=== PATIENT | female | born 1960 | race Caucasian/White ===

== ENCOUNTER 2023-10-24 14:53 | Emergency (ER) | payer OTHER, SELFPAY ==
--- NOTE | ~2023-10-24 | XR_ITS ---
EXAM: XR foot RT min 3V DATE: 10/24/2023 15:18 HISTORY: foot injury; pain . COMPARISON: None available. FINDINGS: Decreased mineralization. Old fifth metatarsal shaft fracture, healed in mild deformity. N o new acute fracture or dislocation. Splayed second and third toes. No lytic or blastic lesion. Moder ate scattered degenerative change. Small os navicularis. Mild Achilles and plantar enthesopathy. No e rosion or periosteal change. Soft tissues within normal limits. IMPRESSION: No acute osseous finding in the right foot. Splayed toes which can occur with Gonzalez's neuroma, correlate clinically. Reviewed, dictated and finalized at location K.
[2023-10-24 15:02] VITALS: BP 140/87; PULSE 85; RESP 20; TEMP 36.8; O2SAT 100
[2023-10-24] MEDS: KETOROLAC (*BKC) 60 MG/2 ML VIAL IM (15:29)
--- NOTE | 2023-10-24 20:12 | ED.LOWEXIN ---
HPI - Extremity Injury (Lower) General Chief Complaint: Extremity Injury, Lower Stated Complaint: right foot injury Source: patient, RN notes reviewed and old records reviewed Mode of arrival: ambulatory Limitations: no limitations History of Present Illness HPI Narrative: 62-year-old female to [facility] for complaint of right foot injury. patient reports history of prior fracture to 5th metatarsal. Patient states that today she was helping a 300 pound family member with a wheelchair. patient states the wheelchair was going the wrong direction and she used her foot to try to stop it. patient endorsing pain to right lateral dorsal foot. Moderate swelling noted upon arrival. Patient denies numbness, tingling. Related Data Home Medications Medication Instructions Recorded Confirmed omeprazole 40 mg capsule,delayed 40 mg PO DAILY 10/24/23 10/24/23 release Allergies Allergy/AdvReac Type Severity Reaction Status Date / Time No Known Allergies Allergy Verified 10/24/23 15:10 Review of Systems Review of Systems: All systems reviewed & are unremarkable except as noted in HPI and below Constitutional: Constitutional: Reports no additional constitutional complaints Eyes: Eyes: Reports no additional eye complaints ENT: Reports system reviewed and no additional complaints, except as documented Cardiovascular: Cardiovascular: Reports no additional cardiovascular complaints, Denies chest pain and Denies dyspnea Respiratory: Respiratory: Reports no additional respiratory complaints, Denies cough and Denies dyspnea Musculoskeletal: Musculoskeletal: Reports other ( Right foot pain) Neurologic: Reports system reviewed and no additional complaints, except as documented Psychiatric: Psychiatric: Reports no additional psychiatric complaints PMFSH Comments At the time of my signature, I reviewed and agree with the nursing past medical, surgical, social, and family history. There is no relevant family history pertinent to the patient complaint. Exam Const: General: cooperative, no acute distress, alert, uncomfortable and well nourished Nutritional Appearance: well nourished Orientation/consciousness: patient oriented x3 Limitations: no limitations HENMT: Head: normal to inspection Ears: external ears normal Face/Nose/Sinus: Normal external nose present, Normal nares present, normal facial exam, No erythema and No edema Face and sinus: normal facial exam, no erythema and no edema Mouth: Yes Normal oral and palatal mucosa present Eyes: General: appearance normal, both eyes and all related structures Neck: Neck: normal visual inspection, full ROM and no meningeal signs Lymphatic: no lymphadenopathy noted and no lymphedema noted Chest: Chest palpation & inspection: normal inspection of the chest Resp: Effort & Inspection: normal respiratory effort and able to speak in complete sentences Auscultation: clear to auscultation bilaterally Cardio: Jugular venous distension: no JVD Rate: regular rate Rhythm: regular rhythm Back/Spine/Pelvis: Cervical Spine: cervical ROM normal Skin: General skin exam: normal color, no rashes or lesions noted and turgor normal Neuro: General: patient oriented x3, gait normal, moves all extremities and no meningeal signs Speech: normal speech Gait exam (Neuro): Normal gait present Extrem: General: normal to inspection, full ROM and capillary refill normal Right lower extremity: full ROM, normal capillary refill, edema Details: 2+ and foot Details: normal capillary refill, tenderness, toes with normal ROM, edema, ecchymosis and vascular exam Details: dorsalis pedis pulse present, posterior tibial pulse present and normal capillary refill; no unusual warmth, no abrasion and no laceration Psych: Appearance: grossly normal and well kempt Course Course Emergency Course: Some parts of this dictation were generated by voice recognition software and may contain typographical and/or g
== END 2023-10-24 16:00 | disposition home or self-care (01) ==
PROVIDERS: Emergency Provider Nurse Practitioner Family
DX: S93.601A Unspecified sprain of right foot, initial encounter (principal); W20.8XXA Other cause of strike by thrown, projected or falling object, initial encounter; E78.00 Pure hypercholesterolemia, unspecified; Z85.3 Personal history of malignant neoplasm of breast; Z92.21 Personal history of antineoplastic chemotherapy; Z92.3 Personal history of irradiation
CPT/HCPCS: 73630; 96372; 99213; G0463; J1885

== ENCOUNTER 2024-11-17 16:28 | Emergency (ER) | payer OTHER, SELFPAY ==
--- NOTE | ~2024-11-17 | XR_ITS ---
XR foot LT min 3V Ordering provider: Wong Shields APRN History: . left foot injury, dorsal pain and pinky toe pain . Comparison: None. FINDINGS: BONES: Possibility of fracture in the distal metaphysis of the proximal phalanx of the little toe is not excluded. Follow-up advised. No acute fracture or dislocation. JOINT SPACES: Narrowing of the proximal and distal interphalangeal joints. No tarsal coalition. SOFT TISSUES: Soft tissue swelling over the area of the fifth metatarsophalangeal joint. Calcaneus spur. Ossification of the insertion of the tendo Achilles. IMPRESSION: Possible fracture in the distal metaphysis of the proximal phalanx of the little toe. Follow-up advis ed. Otherwise, No acute osseous abnormality left foot. Polyarticular osteoarthritic changes. Reviewed, dictated and finalized at location A. IMPRESSION: Possible fracture in the distal metaphysis of the proximal phalanx of the littl e toe. Follow-up advised. Otherwise, No acute osseous abnormality left foot. Polyarticular osteoarthritic changes.
--- OUTSIDE RECORDS SUMMARY | 2024-11-17 16:30 | XMS_ITS ---
Author Organization [facility] Address [address] [place] [id number] Care Team Providers Care Insulator Technician Name Role Phone Aranza Sy MD PhD Unavaila ble Ivana Dahl MD, Steven Arias Unavailable [phone] Michael Amin MD Unavailable Jessica Murillo MD Unavailable Allyson Pleitez MD Unavailable Kay Dahl MD, Francisco Branch Unavailable [phone] Mayra Mccurdy MD Unavailable Robles Stratton MD Unavailable Pilo Kohli MD Primary Care Provider [phone] Active Problems Problem Noted Date Diagnosed Date Encounter for follow-up exam ination after completed treatment for malignant neoplasm 05/26/2022 Personal history of malignant neoplasm of breast 05/26/2022 Personal history of irradiation 05/26/2022 Family history of ischemic h eart disease and other diseases of the circulatory system 05/12/2022 Left foot pain 12/02/2020 History of partial mastectomy of left breast 11/2020 Other diseases of stomach and duodenum Overview (09/04/2020): Added automatically from request for surgery [id number] Assessment & Plan (12/02/2020 1:05 PM CDT): Patient had intestinal metaplasia on initial gastric biopsy. Repeat biopsies revealed H pylori to be negative. She was reassured. Will repeat endoscopy for surveillance in 3-5 years. Abdominal pain 08/07/2020 Overview (08/07/2020): Added automatically from request for surgery [id number] Assessment & Plan (12/02/2020 1:07 PM CDT): Worsening midepigastric and right upper quadrant abdominal. Was thought to be due to irritable bowel syndrome but the pain is worse after she received chemotherapy and radiation recently for breast cancer. CT scan of the abdomen of June 2020 was negative. Recent Esophagogastroduodenoscopy also revealed no ulcer or tumor to explain her pain. I will repeat CBC and CMP as well as amylase and lipase. CT abdomen and pelvis requested. Trial of dicyclomine. Assessment & Plan (08/07/2020 4:28 PM BLASTING ENTRYMAN): The patient has had chronic right upper quadrant pain that was poorly described. She now has a new moderately severe epigastric pain that is associated with weight loss and poor appetite. The pain apparently had been present since last year when she was receiving chemotherapy and radiation therapy for breast cancer. She however has completed the cancer treatment at this time and the pain seems to have worsened. The likely etiology is gastric or duodenal ulcer. Erosive esophagitis is a possibility. Gastric neoplasm is considered but thought to be less likely. Screening for colon cancer 08/07/2020 Overview (08/07/2020): Added automatically from request for surgery [id number] Assessment & Plan (08/07/2020 4:17 PM BLASTING ENTRYMAN): Lack of colon cancer screening. Has hx of breast cancer. Colonoscopy is recommended. The patient was informed about the risks, benefits and alternatives to colonoscopy. The risks including but not limited to perforation, bleeding, infection and anesthetic complications with discussed with the patient and the patient verbalized full understanding. Weight loss 08/07/2020 Assessment & Plan (08/07/2020 4:16 PM BLASTING ENTRYMAN): 10 lb weight loss. Associated with poor appetite because of abdominal pain. Has hx of breast cancer, s/p RT and chemotherapy. Plan Start on Omeprazole 40 mg daily. EGD and Colonoscopy are recommended. Encounter for screening colonoscopy 08/07/2020 Overview (08/11/2020): Added automatically from request for surgery [id number] axillary web (cording) left axilla 05/08/2020 Malignant neoplasm of overla pping sites of left breast in female, estrogen receptor negative 10/22/2019 Cancer Staging:Clinical stage from 10/09/2019:Stage IIB(cT2, cN0, cM0, G3, ER-, VA-, HER2-) - Signed by Maria Antonia Corado MD on 04/24/2020 Pathologic stage from 03/31/2020:No Stage Recommended(ypT0, pN0, cM0, ER: Not Assessed, VA: Not Assessed, HER2: Not Assessed) - Signed by Aranza Sy MD PhD on 03/31/2020 Anxiety 05/22/2017 Palpitations 05/22/2017 Unspecified atrial fibrillation 04/21/2017 Closed fracture of fifth metatarsal bone 017 Overview (10/01/2016): Closed displaced fracture of fifth metatarsal bone of right foot, initial encounter Current Treatment and Therapy Plans No current plan information found. Past Treatment and Therapy Plans Line Care Plan Name Start Date Discontinue Date Treatment Medications Discontinue Reason Plan Provider IV Maintenance Therapy Plan 11/04/2019 03/04/2020 No medications scheduled. Therapy Complete Michael Amin MD Oncology Chemotherapy Treatment Plan Name Start Date Discontinue Date Treatment Medications Discontinue Reason Plan Provider Cycles [id number] - [facility] - Breast - Co-clinical Trial: Carboplatin and Docetaxel 0 03/04/2020 CARBOplatin (PARAPLATIN) IVPB in 250 mLDOCEtaxel (TAXOTERE) IVPB in 250 mL (vial 10mg/mL)DOCEta xel (TAXOTERE) IVPB in 250 mL (vial 20mg/mL) Therapy Complete Michael Amin MD 6 of 6 cycles started Specialty Infusion Treatment Plan Name Start Date Discontinue Date Treatment Medications Discontinue Reason Plan Provider Hydration Therapy Plan 01/30/2020 03/04/2020 No medications scheduled. Therapy Complete Michael Amin MD Radiation Treatments * Course C1 LT BREAST 20 05/06/2020 - 06/04/2020 Treatment Period Energy Fraction Dose Fractions Total Dose Plans Planned LT BREAST BST 06/01/2020 - 06/04/2020 250 4 / 1,000 LT BREAST 05/06/2020 - 05/29/2020 266 16 / 4,256 Reference Points Delivered Lumpectomy+1.5 06/01/2020 - 06/04/2020 1,000 Breast_L 05/06/2020 - 05/29/2020 4,256 Lifetime Dose Tracking * Chemical Lifetime Dose Automatic Entry Manual Entr y Fluoro Time 1.2 minutes 1.2 minutes 0 minutes Air kerma at the reference point (Ka,r) 8.87 mGy 8 .87 mGy 0 mGy Resolved Problems Problem Noted Date Diagnosed Date Resolved Date Malignant neoplasm of left female breast 03/16/2021 04/29/2021 Overview (03/16/2021): Added automatically from request for surgery [id number]
--- OUTSIDE RECORDS SUMMARY | 2024-11-17 16:30 | XMS_ITS | Encounter Summary ---
Author Organization [facility] Address [address] [place] [address] Care Team Providers Care Dairy And Food Laboratory Assistant Name Role Phone Yoana Palacios MD Primary Care Provider Aranza Sy MD PhD Unavaila ble Ivana Dahl MD, Steven Arias Unavailable Michael Amin MD Unavailable Jessica Murillo MD Unavailable [phone] Maria Antonia Corado MD Unavailable [phone] Allyson Pleitez MD Unavailable Kay Dahl MD, Francisco Branch Unavailable [phone] Mayra Mccurdy MD Unavailable Robles Stratton MD Unavailable Pilo Kohli MD Primary Care Provider [phone] Encounter Details Date Type Department Care Team (Late st Contact Info) Description 10/24/2019 Telephone [facility] [address] [place] [address] [place] [address] [place] [address] Social History Tobacco Use Types Packs/Day Years Used Date Smoking Tobacco: Former Cigarettes Q uit: 1983 Smokeless Tobacco: Never Alcohol Use Standard Drinks/Week Comments Yes 0 (1 standard drink = 0.6 oz pur e alcohol) Occasional Comments No Sex and Gender Information Value Date Recorded Sex Assigned at Not on file Legal 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 10/25/2019 10/25/2019 2019 8:0 4 AM CDT Exposure, COVID-19 Comment:Added automatically based on COVID19 lab answers indicating exposure risk 06/12/2020 06/12/2020 06/27/2020 3:[address] documented as of this encounter Care Teams Dairy And Food Laboratory Assistant Relationship Specialty Start Date End Date Yoana Palacios MD [address] [place] [address] PCP - General 09/23/16 02/12/24 Pilo Kohli MD [address] [place] [address] PCP - General Internal Medicine 02/13/24 Aranza Sy MD PhD [address] [place] [address] Surgeon Surgical Oncology 10/22/19 Steven Heath Jr., MD [address] [place] [address] Consulting Physician Cardiovascular Disease 10/22/19 Michael Amin MD [address] [place] [address] Medical Oncologist/Hematologis t Medical Oncology 10/22/19 Jessica Murillo MD [address] [place] [address] Consulting Physician Gastroenterology 10/22/19 Maria Antonia Corado MD [address] [place] [address] Radiation Oncologist Radiation Oncology 04/24/20 Allyson Pleitez MD [address] [facility] [place] [address] Radiation Oncologist Radiation Oncology 02/12/21 [place] [address] [address] Surgeon Orthopedic Surgery 02/12/21 [place] [address] [address] Consulting Physician Rheumatology 05/10/21 Robles Stratton MD [address] [facility], [address] [address] Consulting Physician Medical Oncology 09/13/21 documented as of this encounter
--- OUTSIDE RECORDS SUMMARY | 2024-11-17 16:30 | XMS_ITS | Clinical Summary ---
Author Organization [facility] Address [address] [place] [address] Care Team Providers Care Mobile Application Development Lead Name Role Phone Aranza Sy MD PhD Unavaila ble Ivana Dahl MD, Steven Arias Unavailable [phone] Michael Amin MD Unavailable Jessica Murillo MD Unavailable [phone] Allyson Pleitez MD Unavailable Kay Dahl MD, Francisco Branch Unavailable [phone] Mayra Mccurdy MD Unavailable Robles Stratton MD Unavailable Pilo Kohli MD Primary Care Provider [phone] Allergies No known active allergies Medications ergocalciferol, vitamin D2, (VITAMIN D2 ORAL) Take 1 tablet by mouth daily Active xh-eqh-O-glutami j-csuola-ly528 (Airborne, lysine HCl,) 1,000-50 mg tablet, effervescent Take 1 tablet by mouth daily Active cetirizine (ZyrTEC) 5 mg tablet Take 1 tablet (5 mg total) by mouth daily as needed Active valACYclovir (VALTREX) 500 mg tablet Take 1 tablet (500 mg total) by mouth 2 (two) times a day as needed 1 Active omeprazole (PriLOSEC) 40 mg capsule Take 1 capsule (40 mg total) by mouth daily as needed (heartburn) 30 capsule 11 3 Active dicyclomine (BENTYL) 10 mg capsule Take 1 capsule (10 mg total) by mouth 4 (four) times a day as needed (abdominal pain) 60 capsule 11 3 Active calcium carbonate-vitami n D3 1,500 mg (600mg elemental) -800 unit per tablet Take 1 tablet by mouth daily 30 tablet 11 4 Active Additional Information Patient not taking.Reported on 05/31/2024 Active Problems Problem Noted Date Diagnosed Date [...] (09/04/2020): Added automatically from request for surgery [id number] Assessment & Plan (12/02/2020 1:05 PM CDT): Patient had intestinal metaplasia on initial gastric biopsy. Repeat biopsies revealed H pylori to be negative. She was reassured. Will repeat endoscopy for surveillance in 3-5 years. Abdominal pain 08/07/2020 Overview (08/07/2020): Added automatically from request for surgery [id number] Assessment & Plan (12/02/2020 1:07 PM CDT): [...] dicyclomine. Assessment & Plan (08/07/2020 4:28 PM AQUATICS INSTRUCTOR): The patient has had chronic right upper [...] (08/07/2020): Added automatically from request for surgery [id number] Assessment & Plan (08/07/2020 4:17 PM AQUATICS INSTRUCTOR): Lack of colon cancer screening. Has hx of breast cancer. Colonoscopy is recommended. The patient was informed about the risks, benefits and alternatives to colonoscopy. The risks including but not limited to perforation, bleeding, infection and anesthetic complications with discussed with the patient and the patient verbalized full understanding. Weight loss 08/07/2020 Assessment & Plan (08/07/2020 4:16 PM AQUATICS INSTRUCTOR): 10 lb weight loss. Associated with poor appetite because of abdominal pain. Has hx of breast cancer, s/p RT and chemotherapy. Plan Start on Omeprazole 40 mg daily. EGD and Colonoscopy are recommended. Encounter for screening colonoscopy 08/07/2020 Overview (08/11/2020): Added automatically from request for surgery [id number] axillary web (cording) left axilla 05/08/2020 Malignant neoplasm of overla pping sites of left breast in female, estrogen receptor negative 10/22/2019 Cancer Staging:Clinical stage from 10/09/2019:Stage IIB(cT2, cN0, cM0, G3, ER-, RI-, HER2-) - Signed by Maria Antonia Corado MD on 04/24/2020 Pathologic stage from 03/31/2020:No Stage Recommended(ypT0, pN0, cM0, ER: Not Assessed, RI: Not Assessed, HER2: Not Assessed) - Signed by Aranza Sy MD PhD on 03/31/2020 Anxiety 05/22/2017 Palpitations 05/22/2017 Unspecified atrial fibrillation 04/21/2017 Closed fracture of fifth metatarsal bone 017 Overview (10/01/2016): Closed displaced fracture of fifth metatarsal bone of right foot, initial encounter Resolved Problems Problem Noted Date Diagnosed Date Resolved Date Malignant neoplasm of left female breast 03/16/2021 04/29/2021 Overview (03/16/2021): Added automatically from request for surgery [id number] Surgical History Surgery Date Site/Laterality Comments HYSTERECTOMY Hysterectomy LAPAROTOMY 06/26/1982 - 06/25/1983 ovarian cyst; 1983 laproscopic to verify atopic ; BREAST BIOPSY 10/09/2019 Left SECTION 1985, 1990 CHOLECYSTECTOMY 06/26/1991 - 06/25/1992 Cholecystectomy ADHESIOLYSIS 06/26/1987 - 06/25/1988 COLONOSCOPY 06/26/2000 - 06/25/2001 [place] COLONOSCOPY 08/13/2020 repeat screen UPPER GASTROINTESTINAL ENDOSCOPY 06/26/2010 - 06/25/2011 UPPER GASTROINTESTINAL ENDOSCOPY 08/13/2020 UPPER GASTROINTESTINAL ENDOSCOPY 09/17/2020 VITRECTOMY 05/03/2024 Left Medical History Medical History Date Comments Ovarian cyst PONV (postoperative nausea and vomiting) Motion sickness Cancer (HCC) 2019 breast Diverticulitis of colon Anxiety Miscarriage x2 Migraines Fibroid Arthritis History of chemotherapy 01/2020 Breast cancer (HCC) 10/22/2019 left breast cancer Intestinal metaplasia of gastric mucosa History of radiation therapy 05/2020 Normal esophagogastroduodenoscopy (EGD) GERD (gastroesophageal reflux disease) Family History Medical History Relation Name Comments Arthritis Brother Xu orozco detached retina Father Hypertension Mother Nieves Hypertension Other 1 Family history of Hypertension; Rheum arthritis Other 2 Family histo ry of Rheumatoid arthritis; Breast cancer Neg Hx Cancer Neg Hx Endometrial cancer Neg Hx Ovarian cancer Neg Hx Thyroid cancer Neg Hx Relation Name Status Comments Brother Xu orozco Father Alive Mother Nieves Alive Other 1 Other 2 Social History Tobacco Use Types Packs/Day Years Used Date Smoking Tobacco: Former Cigarettes Q uit: 1982 Smokeless Tobacco: Never Tobacco Cessation:Counseling Given: Not Answered Comments:Social smoker while in the y prime Alcohol Use Standard Drinks/Week Comments Yes 0 (1 standard drink = 0.6 oz pur e alcohol) seldom Social Connection and Isolat ion Panel [NHANES] Answer Date Recorded In a typical week, how many times do you talk on the phone with family, friends, or neighbors? More than three times a week 11/09/2023 How often do you get togethe r with friends or relatives? More than three times a week 11/09/2023 How often do you attend chur ch or rastafarian services? More than 4 times per year 11/09/2023 Do you belong to any clubs o r organizations such as lutheran groups, unions, fraternal or athletic groups, or school groups? Yes 11/09/2023 How often do you attend meet ings of the clubs or organizations you belong to? More than 4 times per year 11/09/2023 Are you , , di vorced, , never , or living with a partner? 11/09/2023 AUDIT-C Answer Date Recorded Q1: How often do you have a drink containing alc ohol? Never 08/29/2022 Average Number of Drinks Not on file 023 Frequency of Binge Drinking Not on file 11/2022 Overall Financial Resource Strain (CARDIA) Answe r Date Recorded How hard is it for you to pa y for the very basics like food, housing, medical care, and heating? Not hard at all 11/09/2023 PHQ-2 Answer Date Recorded Patient Health Questionnaire-2 Score 0 11/09/2023 [facility] - Occupational Stress Questionnaire Answer Date Recorded Do you feel stress - tense, restless, nervous, or anxious, or unable to sleep at night because your mind is troubled all the time - these days? Only a little 11/09/2023 Exercise Vital Sign Answer Date Recorde d On average, how many days pe r week do you engage in moderate to strenuous exercise (like a brisk walk)? 3 days 11/09/2023 On average, how many minutes do you engage in exercise at this level? 30 min 11/09/2023 Hunger Vital Sign Answer Date Recorded Within the past 12 months, y ou worried that your food would run out before you got the money to buy more. Never true 11/09/19 24 Within the past 12 months, t he food you bought just didn't last and you didn't have money to get more. Never true 11/09/2023 PRAPARE - Transportation Answer Date Re corded In the past 12 months, has l ack of transportation kept you from medical appointments or from getting medications? No 10/24 In the past 12 months, has l ack of transportation kept you from meetings, work, or from getting things needed for daily living? No 11/09/2023 Housing Stability Vital Sign Answer Randall e Recorded In the last 12 months, was t here a time when you were not able to pay the mortgage or rent on time? No 11/09/2023 In the last 12 months, how many places have you lived? 1 11/09/2023 In the last 12 months, was t here a time when you did not have a steady place to sleep or slept in a fci (including now)? No 11/09/2023 Personal Safety Answer Date Recorded Getting School Help Needed Denies 06/10 Comments No Sex and Gender Information Value Date Recorded Sex Assigned at Not on file Legal Sex Female 7:15 PM AQUATICS INSTRUCTOR Gender Identity Not on file Sexual Orientation Not on file Obstetrics History Para Term AB IAB SAB Ectopic Multiple Livin g Live Births 2 2 2 Date Outcome GA Total Labor Labor/2nd/3rd Weight Sex Type Anes PTL Sarah A1 A5 Name Clin Term Term Last Filed Vital Signs Vital Sign Reading Time Taken Comments Blood Pressure 128/86 08/15/2024 2:37 PM AQUATICS INSTRUCTOR Pulse 68 08/15/2024 2:37 PM AQUATICS INSTRUCTOR Temperature 36.4 C (97.6 F) 08/15/2024 2:37 PM AQUATICS INSTRUCTOR Respiratory Rate 18 08/15/2024 2:37 PM AQUATICS INSTRUCTOR Oxygen Saturation 97% 08/15/2024 2:37 PM AQUATICS INSTRUCTOR Inhaled Oxygen Concentration - - Weight 73.9 kg (163 lb) 08/15/2024 2:37 PM AQUATICS INSTRUCTOR Height 157.5 cm (5' 2) 08/29/2022 7:50 AM AQUATICS INSTRUCTOR Body Mass Index 29.81 08/29/2022 7:50 AM AQUATICS INSTRUCTOR Plan of Treatment Health Maintenance Due Date Last Done Comments Hepatitis C Screening 1960 Regular Well Visit/Exam 18-64 1980 DTaP/Tdap/Td Vaccine (5 - Tdap) 02/15/2010 02/16/2000, 02/04/1983, 02/03/1982, Additional history exists Zoster Vaccine (1 of 2) 2012 Depression Screening 11/08/2024 11/09/2023, 03/30/2023, 12/02/2020, Additional history exists Breast Cancer Screening-Mammogram 02/19/2025 02/20/2024, 02/13/2023, 02/13/2023, Additional history exists Influenza Vaccine (Season Ended) 2025 Colon Cancer Screening-Colonoscopy 08/13/2030 08/13/2020 Hepatitis B Screening Completed 12/08/2000 , 03/24/2000, 02/16/2000 Colon Cancer Screening-CT Colonography Discontinued 08/13/2020 Colon Cancer Screening-DNA Stool Discontinued 08/13/2020 Colon Cancer Screening-FIT Discontinued 08/13/2020 Colon Cancer Screening-Sigmoidoscopy Discontinued 08/13/2020 Pneumococcal vaccine <65 Aged Out No longer eligible based on patient's age to complete this topic Medical Devices Explanted Type Area Major Gifts Manager Device Identifier Shelf Expiration Date Model / Serial / Lot [employer] [id number] Port Implantable Infusion Smart Port Carbothane Titanium Polyurethane L55cm Od6.6 Fr Id7 Fr Idsec1.4mm 0.4ml 0.016ml Detach Catheter Introducer Low Profile Ct - [id number] Implanted:Qty: 1 on 10/30/2019 by Aranza Sy MD PhD at [facility] Explanted:Qty: 1 on 04/21/2021 by Aranza Sy MD PhD at [facility] Right: Chest Ang[employer] 04/25/2022 [id number] / / [id number] Procedures Procedure Name Priority Date/Time Associated Diagnosis Comments DIAGNOSTIC MAMMOGRAM BILATERAL W VIPIN Schedule Routine, Read Routine (OP Routine) 02/20/2024 9:24 AM CDT Malignant neoplasm of overlapping sites of left breast in female, estrogen receptor negative (HCC) COLONOSCOPY 08/13/2020 8:03 AM AQUATICS INSTRUCTOR from Last 3 Months or Most Recently Relevant to Health Maintenance Results * Diagnostic Mammogram Bilateral W Vipin (02/20/2024 9:24 AM CDT) Anatomical Region Laterality Modality Breast Bilateral Mammography 02/20/2024 9:29 AM CDT Impressions 02/20/2024 9:29 AM CDT Stable exam with no new suspicious abnormality identified within either breast on mammogram. OVERALL FINAL ASSESSMENT: BI-RADS Category 2: Benign. RECOMMENDATION: Annual screening mammography is recommended. Electronically signed by: VANESSA SNYDER MD Narrative 02/20/2024 9:29 AM CDT EXAMINATION: BILATERAL DIGITAL DIAGNOSTIC MAMMOGRAM INCLUDING CAD AND BILATERAL DIGITAL BREAST TOMOSYNTHESIS HISTORY: 63-year-old female history of prior left breast conservation therapy in 2020. Annual exam with no new problems. COMPARISON: 2019 TECHNIQUE: Full field digital mammographic views of BOTH breasts were performed, including computer aided detection (CAD) and BILATERAL digital breast tomosynthesis (DBT). BREAST PARENCHYMAL COMPOSITION: There are scattered areas of fibroglandular density. MAMMOGRAM FINDINGS: Stable changes relating to left breast conservation therapy are again noted. There is no new suspicious abnormality identified within either breast on mammogram. us Robles Stratton MD IMG MAMMO PROCEDU RES Final Result * COLONOSCOPY (08/13/2020 8:03 AM AQUATICS INSTRUCTOR) Anatomical Region Laterality Modality Other Narrative Procedure Note Jessica Murillo MD - 08/13/2020 8:03 AM CST [facility] Patient Name: Jeannette Tatum Procedure Date: 08/13/2020 8:03 AM Date of : 1960 Admit Type: Outpatient Age: 59 Gender: Female Note Status: Finalized Attending MD: Jessica Murillo M.D. Procedure Date: 08/13/2020 Procedure: Colonoscopy Indications: Screening for colorectal malignant neoplasm,Personal history of malignant neoplasm of the breast Providers: Jessica Murillo M.D., Miriam Dumont CRNA (Anesthesia Staff), Steven Cuevas RN Referring MD: Michael Amin M.D., Yoana Palacios M.D. Medicines: Monitored Anesthesia Care Complications: No immediate complications. Estimated Blood Loss: Estimated blood loss was minimal. Procedure: Pre-Anesthesia Assessment: - Prior to the procedure, a History and Physicalwas performed, and patient medications and allergieswere reviewed. The patient is competent. The risks and benefits of the procedure and the sedation optionsand risks were discussed with the patient. Allquestions were answered and informed consent was obtained. Patient identification and proposed procedure were verified by the physician, the nurse and the fitter / welder in the procedure room. Mental Status Examination: alert and oriented. AirwayExamination: normal oropharyngeal airway and neck mobility. Respiratory Examination: clear to auscultation. CV Examination: normal. Prophylactic Antibiotics: The patient does not require prophylactic antibiotics. Prior Anticoagulants: The patient has taken no previous anticoagulant or antiplatelet agents. ASA Grade Assessment: II - A patient with mild systemic disease. After reviewing the risks and benefits,the patient was deemed in satisfactory condition to undergo the procedure. The anesthesia plan was touse monitored anesthesia care (MAC). Immediately priorto administration of medications, the patient was re-assessed for adequacy to receive sedatives. The heart rate, respiratory rate, oxygen saturations, blood pressure, adequacy of pulmonary ventilation,and response to care were monitored throughout the procedure. The physical status of the patient was re-assessed after the procedure. - The risks and benefits of the procedure and the sedation options and risks were discussed with the patient. All questions were answered and informed consent was obtained. After I obtained informed consent, the scope was passed under direct vision. Throughout theprocedure, the patient's blood pressure, pulse, and oxygen saturations were monitored continuously. The scopewas passed under direct vision. The Colonoscope was introduced through the anus and advanced to the the cecum, identified by appendiceal orifice andileocecal valve. The colonoscopy was performed without difficulty. The patient tolerated the procedurewell. The quality of the bowel preparation was adequate.The bowel preparation used was SUPREP via split dose instruction. Findings: A 1 mm polyp was found in the transverse colon. The polyp wassessile. The polyp was removed with a jumbo cold forceps. Resection andretrieval were complete. Estimated blood loss was minimal. Multiple small and large-mouthed diverticula were found in thesigmoid colon and descending colon. The digital rectal exam was normal. Impression: - One 1 mm polyp in the transverse colon, removedwith a jumbo cold forceps. Resected and retrieved. - Diverticulosis in the sigmoid colon and in the descending colon. Recommendation: - Await pathology results. - High fiber diet. - Repeat colonoscopy in 5 years for surveillance. Procedure Code(s): --- Professional --- 78322, Colonoscopy, flexible; with biopsy, singleor multiple Diagnosis Code(s): --- Professional --- Z12.11, Encounter for screening for malignantneoplasm of colon K63.5, Polyp of colon Z85.3, Personal history of malignant neoplasm ofbreast K57.30, Diverticulosis of large intestine without perforation or abscess without bleeding CPT copyright 2019 [employer]. All rights reserved. The codes documented in this report are preliminary and upon retail presentation specialist reviewmay be revised to meet current compliance requirements. Electronically signed by Jessica Murillo M.D. Jessica Murillo M.D. 08/13/2020 8:48:29 AM Number of Addenda: 0 Note Initiated On: 08/13/2020 8:03 AM Jessica Murillo MD ENDOSCOPY PROCEDURES Fi nal Result from Last 3 Months or Most Recently Relevant to Health Maintenance Insurance [facility] Address: [facility] [address] [place] [address] Care Teams Mobile Application Development Lead Relationship Specialty Start Date End Date Pilo Kohli MD [address] [place] [address] PCP - General Internal Medicine 02/13/24 Aranza Sy MD PhD Surgeon Surgical Oncology 10/22/19 Steven Heath Jr., MD Consulting Physician Cardiovascular Disease 10/22/19 Michael Amin MD [address] [place], [place] [id number] Medical Oncologist/Hematologis t Medical Oncology 10/22/19 Jessica Murillo MD [address] [place] [address] Consulting Physician Gastroenterology 10/22/19 Allyson Pleitez MD [address] DEPT [place] [address] Radiation Oncologist Radiation Oncology 02/12/21 [place] [address] [address] [address] Surgeon Orthopedic Surgery 02/12/21 [place] [address] [address] [address] Consulting Physician Rheumatology 05/10/21 Robles Stratton MD [address] [facility], [address] [address] Consulting Physician Medical Oncology 09/13/21
--- OUTSIDE RECORDS SUMMARY | 2024-11-17 16:30 | XMS_ITS | Referral Summary ---
Author Organization [facility] Address [address] [place] [address] Care Team Providers Care Writing Tutor Name Role Phone Aranza Sy MD PhD Unavaila ble Ivana Dahl MD, Steven Arias Unavailable [phone] Michael Amin MD Unavailable Jessica Murillo MD Unavailable Allyson Pleitez MD Unavailable Kay Dahl MD, Francisco Branch Unavailable [phone] Mayra Mccurdy MD Unavailable Robles Stratton MD Unavailable Pilo Kohli MD Primary Care Provider [phone] Allergies No known active allergies Medications ergocalciferol, vitamin D2, (VITAMIN D2 ORAL) Take 1 tablet by mouth daily Active tx-bvi-U-glutami [id number] (Airborne, lysine HCl,) 1,000-50 mg tablet, effervescent [...] (09/04/2020): Added automatically from request for surgery [id number] Assessment & Plan (12/02/2020 1:05 PM CDT): Patient had intestinal metaplasia on initial gastric biopsy. Repeat biopsies revealed H pylori to be negative. She was reassured. Will repeat endoscopy for surveillance in 3-5 years. Abdominal pain 08/07/2020 Overview (08/07/2020): Added automatically from request for surgery [id number] Assessment & Plan (12/02/2020 1:07 PM CDT): [...] dicyclomine. Assessment & Plan (08/07/2020 4:28 PM FASTENER TECHNOLOGIST): The patient has had chronic right upper [...] (08/07/2020): Added automatically from request for surgery [id number] Assessment & Plan (08/07/2020 4:17 PM FASTENER TECHNOLOGIST): Lack of colon cancer screening. Has hx of breast cancer. Colonoscopy is recommended. The patient was informed about the risks, benefits and alternatives to colonoscopy. The risks including but not limited to perforation, bleeding, infection and anesthetic complications with discussed with the patient and the patient verbalized full understanding. Weight loss 08/07/2020 Assessment & Plan (08/07/2020 4:16 PM FASTENER TECHNOLOGIST): 10 lb weight loss. Associated with poor appetite because of abdominal pain. Has hx of breast cancer, s/p RT and chemotherapy. Plan Start on Omeprazole 40 mg daily. EGD and Colonoscopy are recommended. Encounter for screening colonoscopy 08/07/2020 Overview (08/11/2020): Added automatically from request for surgery [id number] axillary web (cording) left axilla 05/08/2020 Malignant neoplasm of overla pping sites of left breast in female, estrogen receptor negative 10/22/2019 Cancer Staging:Clinical stage from 10/09/2019:Stage IIB(cT2, cN0, cM0, G3, ER-, OR-, HER2-) - Signed by Maria Antonia Corado MD on 04/24/2020 Pathologic stage from 03/31/2020:No Stage Recommended(ypT0, pN0, cM0, ER: Not Assessed, OR: Not Assessed, HER2: Not Assessed) - Signed [...] (03/16/2021): Added automatically from request for surgery [id number] Social History Tobacco Use Types Packs/Day Years Used Date Smoking Tobacco: Former Cigarettes Q uit: 1982 Smokeless Tobacco: Never Tobacco Cessation:Counseling Given: Not Answered Comments:Social smoker while in the [place] Alcohol Use Standard Drinks/Week Comments Yes 0 [...] often do you attend chur ch or yarsanism services? More than 4 times per year 11/09/2023 Do you belong to any clubs o r organizations such as congregation groups, unions, fraternal or athletic groups, or [...] Recorded Patient Health Questionnaire-2 Score 0 11/09/2023 [facility] - Occupational Stress Questionnaire Answer Date Recorded [...] place to sleep or slept in a mcc (including now)? No 11/09/2023 Personal Safety Answer Date Recorded Getting School Help Needed Denies 06/10 Comments No Sex and Gender Information Value Date Recorded Sex Assigned at Not on file Legal Sex Female 7:15 PM FASTENER TECHNOLOGIST Gender Identity Not on file Sexual Orientation Not on file Last Filed Vital Signs Vital Sign Reading Time Taken Comments Blood Pressure 128/86 08/15/2024 2:37 PM FASTENER TECHNOLOGIST Pulse 68 08/15/2024 2:37 PM FASTENER TECHNOLOGIST Temperature 36.4 C (97.6 F) 08/15/2024 2:37 PM FASTENER TECHNOLOGIST Respiratory Rate 18 08/15/2024 2:37 PM FASTENER TECHNOLOGIST Oxygen Saturation 97% 08/15/2024 2:37 PM FASTENER TECHNOLOGIST Inhaled Oxygen Concentration - - Weight 73.9 kg (163 lb) 08/15/2024 2:37 PM FASTENER TECHNOLOGIST Height 157.5 cm (5' 2) 08/29/2022 7:50 AM FASTENER TECHNOLOGIST Body Mass Index 29.81 08/29/2022 7:50 AM FASTENER TECHNOLOGIST Plan of Treatment Not on file Medical Devices Explanted Type Area Tmd Teacher Assistant Device Identifier Shelf Expiration Date Model / Serial / Lot Ang[employer] [id number] Port Implantable Infusion Smart Port Carbothane Titanium Polyurethane L55cm Od6.6 Fr Id7 Fr Idsec1.4mm 0.4ml 0.016ml Detach Catheter Introducer Low Profile Ct - [id number] Implanted:Qty: 1 on 10/30/2019 by Aranza Sy MD PhD at [facility] Explanted:Qty: 1 on 04/21/2021 by Aranza Sy MD PhD at [facility] Right: Chest Angio Dynamics 04/25/2022 [id number] / / [id number] Procedures Procedure Name Priority Date/Time Associated Diagnosis Comments DIAGNOSTIC MAMMOGRAM BILATERAL W VIPIN Schedule Routine, Read Routine (OP Routine) 02/20/2024 9:24 AM CDT Malignant neoplasm of overlapping sites of left breast in female, estrogen receptor negative (HCC) COLONOSCOPY 08/13/2020 8:03 AM FASTENER TECHNOLOGIST from Last 3 Months or Most Recently [...] Final Result * COLONOSCOPY (08/13/2020 8:03 AM FASTENER TECHNOLOGIST) Anatomical Region Laterality Modality Other Narrative Procedure Note Jessica Murillo MD - 08/13/2020 8:03 AM CST [facility] Endoscopy Lab Patient Name: Jeannette Tatum Procedure [...] by the physician, the nurse and the booky in the procedure room. Mental Status Examination: [...] for surveillance. Procedure Code(s): --- Professional --- 52477, Colonoscopy, flexible; with biopsy, singleor multiple Diagnosis Code(s): --- Professional --- Z12.11, Encounter for screening for malignantneoplasm of colon K63.5, Polyp of colon Z85.3, Personal history of malignant neoplasm ofbreast K57.30, Diverticulosis of large intestine without perforation or abscess without bleeding CPT copyright 2019 [employer]. All rights reserved. The codes documented in this report are preliminary and upon pattern illustrator reviewmay be revised to meet current compliance requirements. Electronically signed by Jessica Murillo M.D. Jessica Murillo M.D. 08/13/2020 8:48:29 AM Number of Addenda: 0 Note Initiated On: 08/13/2020 8:03 AM Jessica Murillo MD ENDOSCOPY PROCEDURES Fi nal Result from Last 3 Months or Most Recently Relevant to Health Maintenance Insurance [facility] [place] [id number] [facility] Care Teams Writing Tutor Relationship Specialty Start Date End Date Pilo Kohli MD [address] [place] [address] PCP - General Internal Medicine 02/13/24 Aranza Sy MD PhD Surgeon Surgical Oncology 10/22/19 Steven Heath Jr., MD Consulting Physician Cardiovascular Disease 10/22/19 Michael Amin MD [address] [place] [address] Medical Oncologist/Hematologis t Medical Oncology 10/22/19 Jessica Murillo MD [address] [place] [address] Consulting Physician Gastroenterology 10/22/19 Allyson Pleitez MD [address] [place] [address] Radiation Oncologist Radiation Oncology 02/12/21 [place] [address] [address] Surgeon Orthopedic Surgery 02/12/21 [place] [address] [address] [address] Consulting Physician Rheumatology 05/10/21 Robles Stratton MD [address] [facility] MEDICAL ONCOLOGY, [facility] [address] [place] [address] Consulting Physician Medical Oncology 09/13/21
--- OUTSIDE RECORDS SUMMARY | 2024-11-17 16:30 | XMS_ITS | Encounter Summary ---
Author Organization [facility] Address [address] [place] [address] Care Team Providers Care Dat Instructor Name Role Phone Yoana Palacios MD Primary Care Provider Aranza Sy MD PhD Unavaila ble Ivana Dahl MD, Steven Arias Unavailable [phone] Michael Amni MD Unavailable [phone] Jessica Murillo MD Unavailable [phone] Maria Antonia Corado MD Unavailable [phone] Allyson Pleitez MD Unavailable Kay Dahl MD, Francisco Branch Unavailable [phone] Mayra Mccurdy MD Unavailable Robles Stratton MD Unavailable Pilo Kohli MD Primary Care Provider [phone] Encounter Details Date Type Department Care Team (Late st Contact Info) Description 02/01/2019 Documentation [facility] Wound [address] [place] [address] Jeannette Tatum, MANISH Social History Tobacco Use Types Packs/Day Years Used Date Smoking Tobacco: Never Alcohol Use Standard Drinks/Week Comments No 0 (1 standard drink = 0.6 oz pur e alcohol) Comments No Sex and Gender Information Value Date Recorded Sex Assigned at Not on file Legal Sex Female 7:15 PM RECYCLING TECHNICIAN Gender Identity Not on file Sexual Orientation Not on file documented as of this encounter Plan of Treatment Not on file documented as of this encounter Visit Diagnoses Not on filedocumented in this encounter Additional Health Concerns Infection Onset Date Last Indicated Resolved Time COVID: Suspected Comment:COVID Negative 10/23/19 10/23/2019 10/23/2019 0 2:53 PM CDT Respiratory Infection (JE), contact + droplet Comment:Automatically added due to negative COVID-19 result. 10/25/2019 10/25/2019 2019 8:0 4 AM CDT Exposure, COVID-19 Comment:Added automatically based on COVID19 lab answers indicating exposure risk 06/12/2020 06/12/2020 06/27/2020 3:[address] documented as of this encounter Care Teams Dat Instructor Relationship Specialty Start Date End Date Yoana Palacios MD [address] [place] [address] PCP - General 09/23/16 02/12/24 Pilo Kohli MD [address] [place] [address] PCP - General Internal Medicine 02/13/24 Aranza Sy MD PhD [address] [place] [address] Surgeon Surgical Oncology 10/22/19 Steven Heath Jr., MD [address] [place] [address] Consulting Physician Cardiovascular Disease 10/22/19 Michael Amin MD [address] [place] [address] Medical Oncologist/Hematologis t Medical Oncology 10/22/19 Jessica Murillo MD [address] [place] [address] Consulting Physician Gastroenterology 10/22/19 Maria Antonia Corado MD [address] [place] [address] Radiation Oncologist Radiation Oncology 04/24/20 Allyson Pleitez MD [address] [facility] [place] [address] Radiation Oncologist Radiation Oncology 02/12/21 [place] [address] [address] [address] Surgeon Orthopedic Surgery 02/12/21 [place] [address] [address] Consulting Physician Rheumatology 05/10/21 Robles Stratton MD [address] [facility] MEDICAL ONCOLOGY, [address] [address] Consulting Physician Medical Oncology 09/13/21 documented as of this encounter
--- OUTSIDE RECORDS SUMMARY | 2024-11-17 16:30 | XMS_ITS | CONTINUITY OF CARE DOCUMENT ---
Author Name cony donnelly Address Unknown Organization [facility] Address [address] [place] [address] Phone [phone] Care Team Providers Care Double Cut Off Saw Operator Name Role Phone Ivana CALDWELL, Steven Unavailable SWATI ABRAHAM MD Unavailable SWATI ABRAHAM MD Unavailable [phone] PROBLEMS Condition Status Date Provider Notes Atrial fibrillation-Possible active Steven post MD Family History of Hypertension: active ? Eliezer Heath MD Palpitations active Steven Heath MD Anxiety active Steven Heath MD ENCOUNTERS Date Type Provider Location Encounter Diagnosis - In-person encounter Office Visit Steven Heath MD Religious Office - In-person encounter Office Visit Steven Heath MD Religious Office Atrial fibrillation-Possi bleFamily History of Hypertension:Palpi tationsAnxiety VITAL SIGNS Date Observation Value Provider Body Mass Index (Ratio) 26.77 kg/m2 Eliezer Heath MD blood pressure, diastolic 82 mm[Hg] Vickie Cade blood pressure, systolic 124 mm[Hg] Ese stipascual Cade respiratory rate E&M 18 /min Igor Cade pulse rate 86 /min Rylie Cade oxygen saturation, oximetry 98 % Rylie Cade weight E&M 156 [lb_av] Rylie Cade height E&M 64 [in_i] Chastity Rayo Body Mass Index (Ratio) 27.29 kg/m2 Eliezer Heath MD blood pressure, diastolic 92 mm[Hg] Edilson Tobias'Ayad blood pressure, systolic 122 mm[Hg] Winter MesaAyad blood pressure, resting No Syed MesaAyad oxygen saturation, oximetry 99 % Adrianna O'Ayad respiratory rate E&M 16 /min Adrianna O'Ayad pulse rate 89 /min Adrianna O'Ayad weight E&M 159 [lb_av] Adrianna O'Ayad height E&M 64 [in_i] Adrianna O'Ayad ALLERGIES No Known Drug Allergies HISTORY OF MEDICATION USE Medication Status Instructions Dates Provider Indications Com ments VITAMIN C 1000 MG ORAL TABLET active once daily Chastity Rayo NAPROSYN TABLET active one tab as needed Edilson Boucher AMITRIPTYLINE HCL 10 MG ORAL TABLET active one tab by mouth at bedtime Adrianna MesaAyad SOCIAL HISTORY Date Observation Value Provider social history E&M Marital Statu s: Madelyn calvin: 2 O ccupation: Nurse Smoking History: Eliecer baxter is a former smoker. Steven Heath MD social history reviewed E&M revi ewed - no changes required Steven Heath MD alcohol use yes Chastity Rayo passive cigarette sm danilo exposure no Chastity Rayo number of years as a smoker 1 a Chastity Rayo cigarette use yes Chastity Rayo smoking status Former smoker [employer] [employer] alcohol use yes Steven Rizo passive cigarette sm danilo exposure no Steven Heath MD social history E&M S moking History: Eliecer baxter is a former smoker. M arital Status: Madelyn birdyaron: 2 O ccupation: Nurse Steven Heath MD social history reviewed E&M revi ewed - no changes required Steven Heath MD number of years as a smoker 1 a Adrianna Boucher cigarette use yes Adrianna Boucher smoking status Former smoker Adrianna Brown l FAMILY HISTORY Family Member Condition Mother Family History of Hy pertension: INSURANCE PROVIDERS Payer name Policy type / Coverage type Kelvin red green party ID [employer] [id number] ADVANCE DIRECTIVES Name Date POWER OF SR ACCOUNT EXECUTIVE TREATMENT PLAN Date Name Performer Cardiology Steven Heath MD Cardiology Steven Heath MD Cardiology Steven Heath MD Cardiology:All tests negative. Benign PVCs and PACs. No further w/u needed and will hold off on BB at this time. Steven Heath MD Cardiology Steven Heath MD Cardiology Steven Heath MD Cardiology Steven Heath MD Date Name STR - Nuclear Complete Echo HISTORY OF PROCEDURES Procedure Date Procedure Name Provider Procedure Notes S tatus EKG Steven Heath MD complete d SNOMED-CT: [id number] Current Medications Documented Steven Heath MD completed Stress EKG Lucho Whalen MD completed Cardiolite, 2 units Lucho hills MD completed SPECT Images Lucho Whalen MD completed SNOMED-CT: [id number] Current Medications Documented Steven Heath MD completed Mobile Cardiac Telem etry - Tech Steven Heath MD completed Mobile Cardiac Telem etry - Prof Steven Heath MD completed
--- OUTSIDE RECORDS SUMMARY | 2024-11-17 16:30 | XMS_ITS | Continuity of Care Document ---
Author Name [facility] Organization [facility] Care Team Providers Care Games Dealer Name Role Phone [facility] Unavailable Unavailable Allergies, Adverse Reactions, Alerts Combined list of allergies from Department of Defense and Veterans Affairs facilities. It does not include entries that were removed or entered in error. Substance Category Reaction Severity Reaction type Status Date Reported Comments Source No Known Allergies Drug allergy (disorder) active 8 [facility] Immunizations Combined list of available immunizations from the Department of Defense and Veterans Affairs facilities. Immunization Series Date Given Administered By Site Reaction Lot Number CVX Code Drug Bill Peddler Status Comments Source tuberculin skin test; purified protein derivative solution, intradermal 1 2002 Unknown, Provider [id number] Sanofi Pasteur ([facility]) complet ed tuberculi n skin test; purified protein derivativ e solution, intraderm al DoD measles, mumps and rubella virus vaccine 1 2002 Unknown, Provider [id number] Merck ([facility]) complet ed measles, mumps and rubella virus vaccine DoD tuberculin skin test; purified protein derivative solution, intradermal 1 2000 Unknown, Provider [id number] Sanofi Pasteur ([facility]) complet ed tuberculi n skin test; purified protein derivativ e solution, intraderm al DoD hepatitis B vaccine, adult dosage 3 2000 Unknown, Provider 43 Transcribed (TRS) complet ed hepatitis B vaccine, adult dosage DoD hepatitis B vaccine, adult dosage 2 1999 Unknown, Provider 43 Transcribed (TRS) complet ed hepatitis B vaccine, adult dosage DoD measles, mumps and rubella virus vaccine 2 1999 Unknown, Provider 03 Transcribed (TRS) complet ed measles, mumps and rubella virus vaccine DoD tetanus and diphtheria toxoids, adsorbed, preservative free, for adult use (2 Lf of tetanus toxoid and 2 Lf of diphtheria toxoid) 1 1999 Unknown, Provider 09 Transcribed (TRS) complet ed tetanus and diphtheri a toxoids, adsorbed, preservat corey free, for adult use (2 Lf of tetanus toxoid and 2 Lf of diphtheri a toxoid) DoD hepatitis B vaccine, adult dosage 1 1999 Unknown, Provider 43 Transcribed (TRS) complet ed hepatitis B vaccine, adult dosage DoD typhoid vaccine, parenteral, other than acetone-kille d, dried 3 1984 Unknown, Provider 41 Transcribed (TRS) complet ed typhoid vaccine, parentera l, other than acetone-k illed, dried DoD yellow fever vaccine 1 1983 Unknown, Provider 37 Transcribed (TRS) complet ed yellow fever vaccine DoD diphtheria, tetanus toxoids and pertu is vaccine 3 1982 Unknown, Provider 01 Transcribed (TRS) complet ed diphtheri a, tetanus toxoids and pertussis vaccine DoD diphtheria, tetanus toxoids and pertu is vaccine 2 1981 Unknown, Provider 01 Transcribed (TRS) complet ed diphtheri a, tetanus toxoids and pertussis vaccine DoD trivalent poliovirus vaccine, live, oral 1 1981 Unknown, Provider 02 Transcribed (TRS) complet ed trivalent polioviru s vaccine, live, oral DoD typhoid vaccine, parenteral, other than acetone-kille d, dried 2 1981 Unknown, Provider 41 Transcribed (TRS) complet ed typhoid vaccine, parentera l, other than acetone-k illed, dried DoD diphtheria, tetanus toxoids and pertu is vaccine 1 1981 Unknown, Provider 01 Transcribed (TRS) complet ed diphtheri a, tetanus toxoids and pertussis vaccine DoD typhoid vaccine, parenteral, other than acetone-kille d, dried 1 1981 Unknown, Provider 41 Transcribed (TRS) complet ed typhoid vaccine, parentera l, other than acetone-k illed, dried DoD trivalent poliovirus vaccine, live, oral 2 1981 Unknown, Provider 02 Transcribed (TRS) complet ed trivalent polioviru s vaccine, live, oral DoD rubella virus vaccine 1 1981 Unknown, Provider 06 Transcribed (TRS) complet ed rubella virus vaccine DoD meningococcal polysaccharid e vaccine (MPSV4) 1981 Unknown, Provider 32 Transcribed (TRS) complet ed meningoco ccal polysacch aride vaccine (MPSV4) DoD adenovirus vaccine, type 4, live, oral 1 1981 Unknown, Provider 54 Transcribed (TRS) complet ed adenoviru s vaccine, type 4, live, oral DoD adenovirus vaccine, type 7, live, oral 1 1981 Unknown, Provider 55 Transcribed (TRS) complet ed adenoviru s vaccine, type 7, live, oral DoD Procedures Combined list of: 1) Procedures from Department of Veterans Affairs facilities going back up to thelast 18 months, not all VA non-surgical procedures are included; 2) All procedures from the Department of Defense facilities. Procedure Procedure Type Code Date Perfomer Comments Chinyere e ELECTROCARDIOGRAM, ROUTINE ECG WITH AT LEAST 12 LEADS; WITH INTERPRETATION AND REPORT 09/11/2003 [facility] PHYSICAL THERAPY RE-EVALUATION 01/03/2000 DoD Social History Combined list of available smoking, tobacco, and other social history from Department of Defense and Veterans Affairs facilities. Social History Type Response Date Comment Sour e This section is an empty social history section. DoD
--- OUTSIDE RECORDS SUMMARY | 2024-11-17 16:30 | XMS_ITS | Continuity of Care Document ---
Author Organization [facility] Address [address] [place] [address] Phone Care Team Providers Care Gimp Tacker Name Role Phone Redd Davies MD, FACS Unavailable Unavailab le Allergies, Adverse Reactions, Alerts Substance Reaction Status Criticality No Known Allergies Active No Inform ation Medications Medication Instructions Dosage Effective Dates (start - stop) Status Comments Prilosec OTC 20 mg tablet,delayed release take 1 by oral route every day 1 - Active Bentyl 10 mg/mL intramuscular solution inject 2 milliliter by intramuscular route 4 times every day 20 MG - Active Procedures Procedure Date SCODI, Retina Corneal Topography No Charge Optomap Fundus Photos 025 No Charge Refraction Office/outpatient Visit, Est [employer] No Charge Optomap Fundus Photos 024 SCODI, Retina No Charge Refraction Eye Exam, New Patient Advance Directives Directive Yes / No Effective Date File Name No Information Encounters Encounter Description Practice Location Reason(s) For Visit Diagnoses Date Provider Providers Copied on Encounter [facility], [address], [place], [place], [id number], [place] tel:[phone] [place] No Information Keke Rainey. [address], [address], [place], [place], [address], [place]. tel:[phone] Office/outpa tient Visit, Est [facility], [address], [place], [place], [address], [place] tel:[phone] SEC Jay PUCKETT Professional Cataract evaluation (chief complaint) Partial thickness macular hole of left eyeAge-relate d nuclear cataract, bilateralHx of vitrectomyEpi retinal membrane (ERM), bilateralVitr eous degeneration, right eye Apr- 5 Keke Redd. [facility] [employer], [address], [place], [place], [address], [place]. tel:[phone] Referring Provider: Nieves Lance OD, [address] [facility], [place], [address]. tel:[phone] [facility], [address] [place], [place] [address] [address], [place], [place], [address], tel:[phone] [facility] [place] Complete Exam (chief complaint) Partial thickness macular hole of left eyeAge-relate d nuclear cataract, bilateral Sep- 4 [place] Redd. [facility] [employer], [address], [place], [place], [id number], [place]. tel:[phone] Referring Provider: Nieves Lance OD, [address] [facility], [place], [address]. tel:[phone] [facility], [address], [place], [place], [address], [place] tel:[phone] [facility] [place] No Information Sep-2 4 Keke Redd. [facility] [employer], [address], [place], [place], [address], [place]. tel:[phone] Referring Provider: Nieves Lance OD, [address] [facility], [place], [address]. tel:[phone] Family History Family Member Type Diagnosis Age At Onset Father Problem Retinal detachment (Cause Of ) Payers Payer name Insurance type Covered alliance party ID Omaira tran(s) [facility] [place] [id number] Social History Type Description Quantity Date Captured Comments Alcohol Use Details No Caffeine Use Details Tobacco Use Status No Information Smoking Status Never smoker Sex Female Chief Complaint And Reason For Visit No Information Reason For Referral Reason For Referral No Information Plan Of Treatment Date Type Action Status Appointment Jeannette Tatum BOOKED Appointment Jeannette Tatum BOOKED Appointment Jeannette Tatum BOOKED History Of Present Illness Encounter Date Complaint History Of Prese nt Illness Cataract evaluation The 63 year old patient presents for evaluation of Cataract evaluation in the right eye and left eye. Patient had macular hole repair OS by Dr. Christopher done 04/2024. Patient states vision in left eye is much worse than right eye. Patient has a hard time reading small print even with glasses on. Pt is bothered by glare on bright days and oncoming headlights at night. Pt has a hard time seeing computer even with glasses on. Patient has a hard time reading road signs while driving and avoids night time driving. Complete Exam The 63 year old patient presents for evaluation of Complete Exam in the right eye and left eye. Patient states starting 2-3 weeks ago, vision started to decrease and had to adjust computer at work, thinking it was just he cataracts effecting vision. This week patient noticed when covering the right eye, the vision loss was in her left eye. The vision OS look distorted centrally and there's a black spot in the middle, lines don't look straight but disappear in the middle where the spot. Pt notices the left eye doesn't feel normal, sometimes it aches. Functional Status Date Functional Assessmen t No Information Instructions Date Instruction Additional Infor tang Impression/Plan Impression/Plan Assessments Type Assessment Date No Information Patient Care Teams Name Effective Dates (start - stop) Status Members No Information
--- OUTSIDE RECORDS SUMMARY | 2024-11-17 16:30 | XMS_ITS | Clinical Summary ---
Author Organization [facility] Address [address] [place] [address] Phone Care Team Providers Care Commercial Horticulture Instructor Name Role Phone Pilo Kohli MD Primary Care Provider [phone] Medications cetirizine (ZyrTEC) 5 MG Tablet Take 5 mg by mouth. Active dicyclomine (BENTYL) 10 MG Capsule Take 10 mg by mouth. 08/29/2022 Active omeprazole (PriLOSEC) 40 MG CAPSULE DELAYED RELEASE Take 40 mg by mouth. 08/29/2022 Active Vitamin D3 1000 UNIT Tablet Take 25 mcg by mouth daily. Active Active Problems Problem Noted Date Diagnosed Date History of left breast cancer 02/12/2024 GERD without esophagitis 02/12/2024 Age-related osteoporosis wit hout current pathological fracture 02/12/2024 Family History Medical History Relation Name Comments Heart Attack Father Hypertension Father Rheumatoid Arthritis Father Hypertension Mother Rheumatoid Arthritis Mother Relation Name Status Comments Father Alive Mother Alive Social History Tobacco Use Types Packs/Day Years Used Date Smoking Tobacco: Never Smokeless Tobacco: Never Alcohol Use Standard Drinks/Week Comments Never 0 (1 standard drink = 0.6 oz pur e alcohol) PHQ-2 Answer Date Recorded Total Score - Questions 1-9 0 01/24 Sexually Active Control Partners Comments Not Currently Comments Unknown Sex and Gender Information Value Date Recorded Sex Assigned at Not on file Legal Sex Female 11:31 PM CDT Gender Identity Not on file Sexual Orientation Not on file Last Filed Vital Signs Vital Sign Reading Time Taken Comments Blood Pressure 112/86 02/12/2024 11:10 AM CDT Pulse 62 02/12/2024 11:10 AM CDT Temperature 36.6 C (97.9 F) 02/12/2024 11:10 AM CDT Respiratory Rate 12 02/12/2024 11:10 AM CDT Oxygen Saturation 97% 02/12/2024 11:10 AM CDT Inhaled Oxygen Concentration - - Weight 73 kg (160 lb 14.4 oz) 02/12/2024 11:10 A M CDT Height 160 cm (5' 3) 02/12/2024 11:10 AM CDT Body Mass Index 28.5 02/12/2024 11:10 AM CDT Plan of Treatment Upcoming Encounters Date Type Department Care Team (Late st Contact Info) Description 12/17/2024 3:00 PM CDT Office Visit [facility] [place] [address] [place] [id number] Pilo Kohli MD [address] [place] [address] Health Maintenance Due Date Last Done Comments Hepatitis C Virus (HCV) Screening 1962 TdaP Immunization 1962 Pap Smear 10/29/1983 HPV/Cotest 1992 Cologuard 2012 Immunochemical Fecal Occult Blood 2012 Pneumococcal Immunization (50+ years) (1 of 1 - PCV) 2012 Zoster Immunization (1 of 2) 2012 Influenza Immunization (#1) 2024 SARS-COV-2 Immunization ( season) 2024 Mammogram 02/19/2025 02/20/2024, 01/25, 02/13/2023, Additional history exists Colonoscopy 08/13/2030 08/13/2020 Colorectal Cancer Screening 08/13/2030 Respiratory Syncytial Virus (RSV) Immunization (Adult) (1 - 1-dose 75+ series) 2037 08/13/2020 Meningococcal Immunization (ACWY) Aged Out 12/25/1981 No longer eligible based on patient's age to complete this topic Hepatitis B Immunization Completed 001, 03/24/2000, 02/16/2000 Cervical Cancer Screening (CCS) Discontinued Rotavirus Immunization Aged Out No lo nger eligible based on patient's age to complete this topic Procedures Procedure Name Priority Date/Time Associated Diagnosis Comments MAMMOGRAM BILATERAL GENERIC 02/20/2024 12:00 AM CDT from Last 3 Months or Most Recently Relevant to Health Maintenance Results * MAMMOGRAM BILATERAL MISCELLANEOUS (02/20/2024 12:00 AM CDT) 02/20/2024 us Provider Scan IMG MAMMO ORDERABLES Final Resul t SCAN from Last 3 Months or Most Recently Relevant to Health Maintenance [place] [address] [place] [address] Care Teams Commercial Horticulture Instructor Relationship Specialty Start Date End Date Pilo Kohli MD [address] [place] [address] PCP - General Internal Medicine 02/12/24
--- OUTSIDE RECORDS SUMMARY | 2024-11-17 16:30 | XMS_ITS | Continuity of Care Document ---
Author Organization [facility] Address [address] [place] [address] Phone Care Team Providers Care Ocean Import Representative Name Role Phone No Information Unavailable Unavailable Allergies, Adverse Reactions, Alerts Substance Reaction Status Criticality nickel Active No Information Procedures Procedure Date X-ray exam knee, 3 views Office/outpatient visit,est, mod 2012 Supplemental Report MRI lower extrm joint, w/o contrast X-ray exam both knees, standing 013 X-ray exam knee, 1 or 2 views 3 Office consultation, moderate 3 Advance Directives Directive Yes / No Effective Date File Name No Information Encounters Encounter Description Practice Location Reason(s) For Visit Diagnoses Date Provider Providers Copied on Encounter [facility], [address] [place] [address], [id number], [place] tel:[phone] No Information 3 No Information Office/outpat ient visit,est, mod [facility], [address] [place] [address], [place], [place], [id number], [place] tel:[phone] [facility] JOINT PAIN-L/LEGSP RAIN OF KNEE & LEG NOS 3 Iglesia Conway. [address], [address], [place], [place], [address], [place]. tel:[phone] [facility], [address] [place] [address], [id number], [place] tel:[phone] [facility] JOINT PAIN-L/LEG Sep-0 3 [facility]. [address], [address], [place], [place], [address], [place]. tel:[phone] Referring Provider: Man Parekh MD P, [address], [place], [address] . tel:[phone] Office consultation, [facility], [address], [place], [place], [id number], [place] tel:[phone] [facility] JOINT PAIN-L/LEGSP RAIN OF KNEE & LEG NOS Sep-0 3 Iglesia Conway. [address] [facility], [address], [place], [place], [address], [place]. tel:[phone] Family History Family Member Type Diagnosis Age At Onset No Information Immunizations Vaccine Date Status Comments Flu (split) (3 yrs or older) administered Source: New Immunization Record Payers Payer name Insurance type Covered alliance party ID Authorroloa chelsea(s) [facility] Workers Compensation Adm [id number] Social History Type Description Quantity Date Captured Comments Sex Female Smoking Status No Information Chief Complaint And Reason For Visit No Information Reason For Referral Reason For Referral No Information Plan Of Treatment Date Type Action Status Referral Ordered: X-ray exam both knees, standing ordered Referral Ordered: MRI lower extrm joint, w/o contrast Left knee Appointment date/timeframe: 03/01/2013 ordered Referral Ordered: X-ray exam knee, 1 or 2 views Left ordered History Of Present Illness Encounter Date Complaint History Of Prese nt Illness No Information Functional Status Date Functional Assessmen t No Information Instructions Date Instruction Additional Infor mation No Information Assessments Type Assessment Date No Information Patient Care Teams Name Effective Dates (start - stop) Status Members No Information
--- OUTSIDE RECORDS SUMMARY | 2024-11-17 16:32 | XMS_ITS | CONTINUITY OF CARE DOCUMENT ---
Author Name cony donnelly Address Unknown Organization [facility] Address [address] [place] [address] Phone [phone] Care Team Providers Care Pigment And Lacquer Mixer Name Role Phone Ivana CALDWELL, Steven Unavailable SWATI ABRAHAM MD Unavailable SWATI ABRAHAM MD Unavailable PROBLEMS Condition Status Date Provider Notes Atrial fibrillation-Possible active Steven post MD Family History of Hypertension: active ? Eliezer Heath MD Palpitations active Steven Heath MD Anxiety active Steven Heath MD ENCOUNTERS Date Type Provider Location Encounter Diagnosis - In-person encounter Office Visit Steven [facility] - In-person encounter Office Visit Steven [facility] MD [facility] Atrial fibrillation-Possi bleFamily History of Hypertension:Palpi [...] Kelvin red green party ID CLOVIS LEAL [id number] ADVANCE DIRECTIVES Name Date POWER OF HOLDER PILE DRIVING TREATMENT PLAN Date Name Performer Cardiology Steven [...] EKG Steven Heath MD complete d SNOMED-CT: [id number] Current Medications Documented Steven Heath MD completed Stress EKG Lucho Whalen MD completed Cardiolite, 2 units Lucho hills MD completed SPECT Images Lucho Whalen MD completed SNOMED-CT: [id number] Current Medications Documented Steven Heath MD completed [facility] - Tech Steven Heath MD completed [facility] - Prof Steven Heath MD completed
--- OUTSIDE RECORDS SUMMARY | 2024-11-17 16:32 | XMS_ITS | Continuity of Care Document ---
Author Organization [facility] Address [address] [place] [address] Phone Care Team Providers Care Senior Unix Administrator Name Role Phone No Information Unavailable Unavailable [...] Date Provider Providers Copied on Encounter [facility], [address] [place] [address], [id number], [place] tel:[phone] No Information 3 No Information Office/outpat ient visit,est, mod [facility], [address] [place] [address], [place], [place], [id number], [place] tel:[phone] [facility] JOINT PAIN-L/LEGSP RAIN OF KNEE & LEG NOS 3 Iglesia Conway. [address], [address], [place], [place], [address], [place]. tel:[phone] [facility], [address] [place] [address], [id number], [place] tel:[phone] [facility] JOINT PAIN-L/LEG Sep-0 3 [facility]. [address], [address], [place], [place], [address], [place]. tel:[phone] Referring Provider: Man Parekh MD P, [address], [place], [address] . tel:[phone] Office consultation, [facility], [address], [place], [place], [id number], [place] tel:[phone] [facility] JOINT PAIN-L/LEGSP RAIN OF KNEE & LEG NOS Sep-0 3 Iglesia Conway. [address], [address], [place], [place], [address], [place]. tel:[phone] Family History Family Member Type Diagnosis Age At Onset No Information Immunizations Vaccine Date Status Comments Flu (split) (3 yrs or older) administered Source: New Immunization Record Payers Payer name Insurance type Covered libertarian ID Authorroloa chelsea(s) [facility] Workers Compensation Adm [id number] Social History Type Description Quantity Date Captured [...]
--- OUTSIDE RECORDS SUMMARY | 2024-11-17 16:32 | XMS_ITS | Continuity of Care Document ---
Author Organization Loc[facility] Address [address] [place] [address] Phone Care Team Providers Care Edger Tailer Name Role Phone Redd Davies MD, FACS [...] Diagnoses Date Provider Providers Copied on Encounter [facility], [address], [place], [place], [address], [place] tel:[phone] [place] No Information Keke Rainey. [address], [address], [place], [place], [address], [place]. tel:[phone] Office/outpa tient Visit, Est [facility], [address], [place], [place], [address], [place] tel:[phone] SEC Jay PUCKETT Professional Cataract evaluation (chief complaint) Partial thickness macular hole of left eyeAge-relate d nuclear cataract, bilateralHx of vitrectomyEpi retinal membrane (ERM), bilateralVitr eous degeneration, right eye Apr- 5 [place] Redd. [facility] [employer], [address], [place], [place], [address], [place]. tel:[phone] Referring Provider: Nieves Lance OD, [address] [facility], [place], [address]. tel:[phone] [facility], [address] [place], [place] [address] [address], [place], [place], [address], tel:[phone] [place] Complete Exam (chief complaint) Partial thickness macular hole of left eyeAge-relate d nuclear cataract, bilateral Sep- 4 [place] Redd. [facility] [employer], [address], [place], [place], [address], [place]. tel:[phone] Referring Provider: Nieves Lance OD, [address] [facility], [place], [address]. tel:[phone] [facility], [address], [place], [place], [address], [place] tel:[phone] [place] No Information Sep-2 4 Keke Redd. [facility] [employer], [address], [place], [place], [address], [place]. tel:[phone] Referring Provider: Nieves Lance OD, [address] [facility], [place], [address]. tel:[phone] Family History Family Member Type Diagnosis Age At Onset Father Problem Retinal detachment (Cause Of ) Payers Payer name Insurance type Covered republican ID Omaira tran(s) [facility] [id number] Social History Type Description Quantity Date Captured [...]
--- OUTSIDE RECORDS SUMMARY | 2024-11-17 16:32 | XMS_ITS | Continuity of Care Document ---
Author Name [facility] Organization [facility] Care Team Providers Care Field Marketing Lead Name Role Phone [facility] Unavailable Unavailable Allergies, Adverse Reactions, Alerts Combined list of allergies from Department of Defense and Veterans Affairs facilities. It does not include entries that were removed or entered in error. Substance Category Reaction Severity Reaction type Status Date Reported Comments Source No Known Allergies Drug allergy (disorder) active 8 [facility] Immunizations Combined list of available immunizations from the Department of Defense and Veterans Affairs facilities. Immunization Series Date Given Administered By Site Reaction Lot Number CVX Code Drug Parts Counter Representative Status Comments Source tuberculin skin test; purified protein derivative solution, intradermal 1 2002 Unknown, Provider [id number] Sanofi Pasteur ([facility]) complet ed tuberculi n skin test; purified protein derivativ e solution, intraderm al [facility]D measles, mumps and rubella virus vaccine 1 2002 Unknown, Provider [id number] Merck ([facility]) complet ed measles, mumps and rubella virus vaccine [facility] tuberculin skin test; purified protein derivative solution, intradermal 1 2000 Unknown, Provider [id number] Sanofi Pasteur ([facility]) complet ed tuberculi n skin test; [...] 12 LEADS; WITH INTERPRETATION AND REPORT 09/11/2003 [facility] PHYSICAL THERAPY RE-EVALUATION 01/03/2000 DoD Social History Combined list of available smoking, tobacco, and other social history from Department of Defense and Veterans Affairs facilities. Social History Type Response Date Comment Sour e This section is an empty social history section. [facility]D
[2024-11-17 16:37] VITALS: BP 153/92; PULSE 68; RESP 16; TEMP 36.9; O2SAT 100
--- NOTE | 2024-11-17 17:10 | ED_ITS ---
HPI - Skin/Abscess/Foreign Bdy General Chief complaint: Skin/Abscess/Foreign Body Stated complaint: Rash/Toe Injury Source: patient and RN notes reviewed Mode of arrival: ambulatory Limitations: no limitations History of Present Illness HPI narrative: 64-year-old female presents [facility] complaining of rash to her body for 4 days in the left foot injury. Patient said she was out in her yd when in believe she was exposed to poison oak. Patient says she has a itchy rash primarily on her back, bilateral arms, and left lower leg. Patient reports there is 1 lesion on her back that is painful and also itchy. Patient says some of the rash is weeping. Patient also reports having left pinky toe pain and left lateral dorsal foot pain after her dog stepped on her foot near her left pinky toe. Patient believes approximately 3 weeks ago she might have possibly fractured her left pinky toe mildly floor that she accidentally kicked at home. Patient did not get evaluated for it but did use brown-taped over the last few weeks and believes that has resolved. Patient is concerned she might every fractured it. Patient is able to bear weight to her left foot. Patient denies any numbness or tingling or swelling to her foot. Patient denies any fevers, body aches, chills, or any other symptoms. Patient denies any significant past medical history. Related Data Home Medications ?Medication ?Instructions ?Recorded ?Confirmed ?Last Taken ?Type omeprazole 40 mg capsule,delayed 40 mg PO DAILY 10/24/23 10/24/23 Unknown History release Bentyl 11/17/24 Unknown History Allergies Allergy/AdvReac Type Severity Reaction Status Date / Time No Known Allergies Allergy Verified 11/17/24 16:42 Review of Systems Review of Systems: CONSTITUTIONAL: Denies fever, chills, or sweats. EYES: Denies visual changes, redness, or discharge. ENT: Denies rhinorrhea, congestion, sore throat, or otalgia. CARDIOVASCULAR: Denies chest pain, palpitations, or edema. RESPIRATORY: Denies cough or dyspnea. GASTROINTESTINAL: Denies abdominal pain, nausea, vomiting, or diarrhea. GENITOURINARY: Denies dysuria or hematuria. SKIN: Positive for rash and itching. MUSCULOSKELETAL: Denies back pain, joint pain, or myalgia. Positive for left foot and left pinky toe pain. NEUROLOGIC: Denies headache, numbness, or weakness. PSYCHIATRIC: Denies anxiety or depression. All other systems reviewed are negative, except as documented in HPI. PMFSH Comments At the time of my signature, I reviewed and agree with the nursing past medical, surgical, social, and family history. There is no relevant family history pertinent to the patient complaint. Exam Narrative: GENERAL: This is a well-nourished, well-developed adult, in no apparent distress. They are non ill-appearing, nontoxic appearing. HEAD: normocephalic, atraumatic. EYES: Sclera clear/white. Conjunctiva normal. Vision is grossly intact. Extraocular movements intact EARS: External ears normal, Hearing grossly intact. NOSE: External nose normal THROAT: Mucous membranes moist, NECK: Neck supple,. CARDIOVASCULAR: Regular rate and rhythm RESPIRATORY: Respiratory rate normal, respiratory effort nonlabored, no respiratory distress SKIN: Pruritic, papular, vesicular, circular rash present throughout the patient's bilateral upper arms, right elbow, right upper back, and left lower leg near her left ankle. Her is an area of erythema and induration to the patient's right upper back measuring approximately 2 cm x 2 cm. No area of fluctuance. There is tenderness to palpation to this area. NEURO: awake, alert, and oriented to person, place and time. There were no obvious focal neurologic abnormalities. EXTREMITIES: Left foot: No obvious deformity, injury, bruising, swelling, redness to left foot. There is mild swelling to left pinky toe. There is tenderness to palpation to the proximal pinky toe in dorsal surface of left foot near the pinky toe. No crepitus. Pedal pulse 2 +palpable. Patient is able wiggle her toes. Capillary refills less than 2 seconds. Neurovascular status i ntact distal injury. Negative Mckeon's test. Normal flexion extension of left ankle. BACK: Nontender without deformity. No CVA tenderness. Course Course Emergency Course: Portions of this record may have been created with voice recognition software Level of Care: Express Care Visit Vital Signs Vital signs: Vital Signs Temperature 98.4 F 11/17/24 16:37 Pulse Rate 68 11/17/24 16:37 Respiratory Rate 16 11/17/24 16:37 Blood Pressure 153/92 H 11/17/24 16:37 Pulse Oximetry 100 11/17/24 16:37 Oxygen Delivery Room Air 11/17/24 16:37 Temperature 98.4 F 11/17/24 16:37 Pulse Rate 68 11/17/24 16:37 Respiratory Rate 16 11/17/24 16:37 Blood Pressure 153/92 H 11/17/24 16:37 Pulse Oximetry 100 11/17/24 16:37 Oxygen Delivery Room Air 11/17/24 16:37 Reviewed Procedures Orthopedic Splinting/Casting Injury #1: Splinting/Casting Date: 11/17/24 Splinting/Casting Time: 17:20 Lower Extremity Injury Location: toe Lower Extremity Immobilizer: post-op shoe and brown tape Splint: prefabricated Pre-Procedure Neuro Vascular Exam: normal Post-Procedure Neuro Vascular Exam: normal Additional Comments: Patient tolerated procedure well. Left left 5th pinky toe taped to the left 4th toe. MDM - Skin/Abscess/Foreign Bdy MDM Narrative Medical decision making narrative: X-ray showed probable fracture to the distal metaphysis of the proximal phalanx to the little toe in the left foot. Given the patient's pain is located it is likely the patient's fracture left pinky toe. Brown tape applied patient placed in postop shoe. Patient will be given referral to boom crane operator and orthopedist if needed. Will also treat patient for contact dermatitis likely related to poison oak or poison arthur. Will give her prednisone taper. Appears 1 of the lesions appears to be developing a cellulitis, will also treat empirically with cephalexin. Discussed physical exam findings. Advised supportive measures and signs/symptoms to go to the ER. Pt is appropriate for outpt treatment and f/u. Differential Diagnosis Differential diagnosis: Likely herpes zoster, cellulitis, contact dermatitis and other (Foot fracture, toe fracture, foot strain) Imaging Data Radiologist's impression: ITS Impressions Foot X-Ray 11/17/24 17:03 IMPRESSION: Possible fracture in the distal metaphysis of the proximal phalanx of the little toe. Follow-up advised. Otherwise, No acute osseous abnormality left foot. Polyarticular osteoarthritic changes. Critical Care Time Critical Care Time Critical Care Time: No Discharge Plan Discharge Clinical Impression: Fracture of proximal phalanx of lesser toe of left foot Qualifiers: Encounter type: initial encounter Fracture type: closed Fracture alignment: nondisplaced Qualified Code(s): S92.515A - Nondisplaced fracture of proximal phalanx of left lesser toe(s), initial encounter for closed fracture Contact dermatitis Qualifiers: Contact dermatitis type: unspecified Contact dermatitis trigger: unspecified trigger Qualified Code(s): L25.9 - Unspecified contact dermatitis, unspecified cause Patient Disposition: Home Condition: Stable Instructions: Antibiotic Form, Toe Fracture (ED), Contact Dermatitis (ED), Cellulitis (ED) Additional Instructions: Your x-ray showed a possible fracture due to left pinky toe. Please wear the brown tape at all times and wear the postop shoe while ambulating. You may take it off while showering. Please follow-up with primary care provider 3-5 week or follow-up with an orthopedist or boom crane operator for further evaluation management of your toe fracture. Also appears to have a contact dermatitis related to poison arthur or poison oak. Take the prednisone taper as directed. Take in the morning with food. He may use Tecnu soap [id number] from [employer] that may help remove the wheels room poison arthur or oak from you skin. Take the antibiotics as directed for possible skin infection as well. Follow-up primary care provider for your scan in 3-5 days. Please go to the ER for worsening swelling, green or yellow discharge, pain, drainage, fevers, or any other concerns. May use Tylenol ibuprofen as needed for pain. You may bear weight as tolerated. You may use ice or heat as needed for pain and swelling. 20 minutes on 20 minutes off. Patient Language: Slovak Prescriptions: New prednisone 10 mg tablets,dose pack See Taper PO DAILY 12 Days Qty: 42 0RF Taper: Prednisone Taper from 60 mg;12 days 60 mg DAILY for 2 Days and 0 Hour 50 mg DAILY for 2 Days and 0 Hour 40 mg DAILY for 2 Days and 0 Hour 30 mg DAILY for 2 Days and 0 Hour 20 mg DAILY for 2 Days and 0 Hour 10 mg DAILY for 2 Days and 0 Hour cephalexin 500 mg capsule 500 mg PO Q6H 7 Days Qty: 28 0RF No Action Bentyl omeprazole 40 mg capsule,delayed release(DR/EC) 40 mg PO DAILY Follow-up/Referrals: Bj Lozoya DPM [Physician] - Andrew Dumont MD [Physician] - Seun,Pilo King MD [Primary Care Provider] - Time of Disposition: 17:28
== END 2024-11-17 17:41 | disposition home or self-care (01) ==
PROVIDERS: PCP Internal Medicine
DX: S92.515A Nondisplaced fracture of proximal phalanx of left lesser toe(s), initial encounter for closed fracture (principal); W54.8XXA Other contact with dog, initial encounter; L25.9 Unspecified contact dermatitis, unspecified cause
CPT/HCPCS: 73630; 99214; G0463